=== PATIENT | male | born 1945 | race African-American/Black ===

== ENCOUNTER → 2019-05-15 | Outpatient (CLI) | payer OTHER, MEDICAID ==
[2019-05-15 11:38] LABS: BASO # 0.1 x10^3/uL (0.0-0.2); BASO % 2 % (0-3); EOS % 0 % (0-3); HEMATOCRIT 41.9 % (39.0-53.0); HEMOGLOBIN 13.9 g/dL (13.0-17.5); LYMPH # 2.1 x10^3/uL (1.0-4.8); LYMPH % 38 % (24-48); MEAN CORPUSCULAR HEMOGLOBIN 27 pg (25-35); MEAN CORPUSCULAR HGB CONC 33 g/dL (31-37); MEAN CORPUSCULAR VOLUME 82 fL (79-100); MONO # 0.5 x10^3/uL (0.0-1.1); MONO % 9 % (0-9); NEUT # 2.8 x10^3/uL (1.8-7.7); NEUT % 51 % (31-73); PLATELET COUNT 318 x10^3/uL (140-400); RED BLOOD COUNT 5.13 x10^6/uL (4.30-5.70); WHITE BLOOD COUNT 5.4 x10^3/uL (4.0-11.0)
[2019-05-15 11:47] LABS: BILIRUBIN,URINE SMALL (NEG); CLARITY,URINE CLEAR; COLOR,URINE AMBER; NITRITE,URINE NEGATIVE (NEG); PROTEIN,URINE NEGATIVE (NEG-TRACE)
[2019-05-15 12:06] LABS: BACTERIA,URINE FEW /HPF (0-FEW); RBC,URINE OCC /HPF (0-2); SQUAMOUS EPITHELIAL CELL,UR MOD /LPF
[2019-05-15 12:20] LABS: ALBUMIN 3.3 g/dL (3.4-5.0); ALBUMIN/GLOBULIN RATIO 0.7 (1.0-1.7); CALCIUM 9.4 mg/dL (8.5-10.1); CREATININE 1.1 mg/dL (0.7-1.3); GFR 79.8; POTASSIUM 3.9 mmol/L (3.5-5.1); TOTAL BILIRUBIN 0.4 mg/dL (0.2-1.0); TOTAL PROTEIN 8.1 g/dL (6.4-8.2)
[2019-05-15 12:21] LABS: CHOLESTEROL/HDL RATIO 3.5
[2019-05-19 21:08] LABS: VITAMIN D TOTAL 17 ng/mL (.); VITAMIN D2 <1.0 ng/mL (.); VITAMIN D3 17 ng/mL (.)
== END | disposition home or self-care (01) ==
LOC: LAB 10:45
PROVIDERS: ATTEND Internal Medicine Cardiovascular Disease
DX: I11.9 Hypertensive heart disease without heart failure (principal); I42.9 Cardiomyopathy, unspecified
CPT/HCPCS: 36415; 80053; 80061; 81001; 82306; 83700; 83880; 84153; 85025; 86141; 87086; G0103

== ENCOUNTER 2020-08-06 10:19 | Emergency (ER) | payer OTHER, MEDICAID ==
[~2020-08-06] VITALS: Ht 175.3 cm; Wt 59.0 kg
[~2020-08-06 10:19] MED LIST: ALBU2.5V8 IH; AMIO200T6 PO; AMLO10TA4 PO; ATOR80TA72 PO; METO-239 PO; METO25TA4 PO; POTA20TA4 PO; RIVA20TA2 PO; SACU1TAB4 PO; TAMS0.4C97 PO
[2020-08-06 10:35] VITALS: BP 139/76
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
[2020-08-06] MEDS ORDERED: HYDR-2759 PO (12:05)
== END 2020-08-06 12:05 | disposition home or self-care (01) ==
LOC: ER 10:19
DX: M54.42 Lumbago with sciatica, left side (principal); J44.9 Chronic obstructive pulmonary disease, unspecified; I25.10 Atherosclerotic heart disease of native coronary artery without angina pectoris; F17.200 Nicotine dependence, unspecified, uncomplicated; Z95.0 Presence of cardiac pacemaker; Z95.5 Presence of coronary angioplasty implant and graft
CPT/HCPCS: 72100; 99283